=== PATIENT | female | born 1960 | race Caucasian/White ===

== ENCOUNTER 2016-12-05 21:56 | Emergency (ER) | payer BC ==
--- NOTE | ~2016-12-05 | CT4 ---
[facility] A Service of [facility] & [facility] RADIOLOGY TEXT RESULTS PATIENT: HEATH MCCAIN LOCATION: [facility] : 64 UNIT #: [id number] AGE: [address]: Sguey Lang MD SEX: F ORDER DR: [id number] [facility] [address] [place], [place] [address] [id number] E MR#: [id number] Acc #: [id number] NAME: HEATH MCCAIN. : 1960 SEX: F STUDY DATE/TIME: 12/05/2016 23:29 UNIT: [facility] ROOM: STUDY DESCRIPTION: CT Abd and Pelv Wo Cont Attending Physician: Sugey Lang M.D. Ordering Physician: Sugey Lang M.D. Primary Care Physician: Candelario Benavidez M.D. MEDICAL IMAGING REPORT This report is preliminary unless electronic signature is present EXAM CT abdomen and pelvis without IV contrast COMPARISON CT abdomen and pelvis dated 04/17/2008. INDICATION 56-year female with right lower quadrant abdominal pain, nausea, emesis and diarrhea for [address] imaging of the abdomen and pelvis was performed without IV contrast. Lack of IV contrast limits evaluation of adenopathy, vasculature and viscera. Coronal sagittal reformats were constructed. This CT exam was performed with one or more of the following radiation dose reduction techniques: automatic exposure control, adjustment of mA and/or kV according to patient size, and iterative reconstruction. There is a tiny fat-containing umbilical hernia. Small fat-containing right inguinal hernia. No acute fractures or suspicious osseous lesions. Multilevel mild degenerative facet disease of the lumbar spine. No acute fractures or suspicious osseous lesions. Small posterior disc protrusions at L3-4 through L5-S1. No acute findings in the lower chest. Unenhanced liver, gallbladder, spleen, adrenal glands, and kidneys are within normal limits. There is mild haziness of the fat in the superior mesentery with a few prominent mesenteric lymph nodes, the largest of which measures approximately 8 mm short axis. No free fluid or pneumoperitoneum. No hydronephrosis or hydroureter. No renal or ureteral calculus. Urinary bladder is unremarkable. There has been prior hysterectomy. No adnexal masses. No bowel obstruction. Normal appendix. Left colonic diverticulosis without acute diverticulitis. Normal caliber of the abdominal aorta. No adenopathy. STS. [facility] A Service of [facility] & [facility] RADIOLOGY TEXT RESULTS PATIENT: HEATH MCCAIN LOCATION: [facility] : 64 UNIT #: [id number] AGE: [address]: RickeyJanuary P SEX: F ORDER DR: IMPRESSION 1. Haziness of the superior mesenteric fat with multiple associated prominent lymph nodes which are not pathologically enlarged by size criteria. Findings may reflect an acute mesenteric adenitis. 2. Appendix is normal. No other acute findings in the abdomen, pelvis, or imaged lower chest. 3. Small fat-containing right inguinal and umbilical hernias. 4. Multilevel posterior disc protrusions, of the lumbar spine, small. 5. Left colonic diverticulosis without evidence of acute diverticulitis. 6. Prior hysterectomy. Dictated by... Hamilton Salas M.D. THIS IS AN ELECTRONICALLY VERIFIED REPORT Hamilton Salas M.D. at 12/09/2016 8:38 PM AGATHA/gilbert TD: 12/06/2016 09:11 JOB #: [id number] MEDICAL IMAGING REPORT COPY
[2016-12-05 20:18] LABS: URINE SOURCE CLEAN CATCH
[2016-12-05 20:25] LABS: URINE APPEARANCE CLOUDY; URINE BILIRUBIN NEG (NEG); URINE BLOOD 2+ (NEG); URINE COLOR YELLOW; URINE GLUCOSE NEG (NEG); URINE KETONE NEG (NEG); URINE LEUKOCYTE ESTERASE TRACE (NEG); URINE NITRATE NEG (NEG); URINE PROTEIN 2+ (NEG); URINE SPECIFIC GRAVITY 1.026 (1.003-1.035); URINE UROBILINOGEN 0.2 MG/DL (NEG)
[2016-12-05 20:26] LABS: BASOPHIL% 0.5 % (0-2.5); DIFF IND NO; EOSINOPHIL# 0.3 X10e3 (0-0.7); EOSINOPHIL% 3.3 % (0.0-7.0); HEMATOCRIT 44.7 % (35.0-45.0); HEMOGLOBIN 15.1 gm/dL (12.0-16.0); LYMPHOCYTE# 2.6 X10e3 (1.0-3.5); LYMPHOCYTE% 28.4 % (17.0-45.0); MEAN CORPUSCULAR HGB CONC 33.7 g/dL (30-36); MEAN PLATELET VOLUME 9.4 FL (6.5-11.5); MONOCYTE# 0.9 X10e3 (0-1.0); MONOCYTE% 9.3 % (3.0-12.0); NEUTROPHIL# 5.4 X10e3 (1.5-7.1); NEUTROPHIL% 58.5 % (40-75); PLATELET COUNT 211 X10e3 (140-420); RED CELL DISTRIBUTION WIDTH 13.5 % (11.0-15.5); WHITE BLOOD COUNT 9.2 X10e3 (4.0-10.5)
[2016-12-05 20:29] LABS: URINE BACTERIA AUWI 1+ (NEGATIVE); URINE SQUAMOUS EPITHELIAL CELL FEW /[HPF]
[2016-12-05 20:46] LABS: URINE CRYSTALS CALCIUM OXALATE /[HPF]
[2016-12-05 20:55] LABS: ALBUMIN SERUM 4.7 g/dL (3.5-5.0); ALKALINE PHOSPHATASE 123 U/L (32-92); ALT (SGPT) 31 U/L (10-40); AST (SGOT) 20 U/L (10-42); BILIRUBIN, DIRECT 0.1 mg/dL (0.0-0.2); BILIRUBIN,INDIRECT 0.5 mg/dL (0.0-0.9); BILIRUBIN,TOTAL 0.6 mg/dL (0.2-2.0); BLOOD UREA NITROGEN 10 mg/dL (9-23); BUN/CREATININE RATIO 16.66; CALCIUM SERUM 9.8 mg/dL (8.4-10.2); CARBON DIOXIDE 23 mmol/L (22-31); CHLORIDE 103 mmol/L (100-111); CREATININE SERUM 0.6 mg/dL (0.6-1.4); GLOM FILT RATE Estimated ABOVE60 mL/min (>60); GLUCOSE FASTING 145 mg/dL (70-110); LIPASE 16 U/L (22-51); POTASSIUM 3.3 mmol/L (3.5-5.1); PROTEIN TOTAL SERUM 8.3 g/dL (6.0-8.3); SODIUM 136 mmol/L (135-145)
[~2016-12-05 21:56] MED LIST: ACETAMINOPHEN PO; DIFLUCAN PO; FERROUS SULFATE PO; IRON PO; KEFLEX500 MG PO; LEVAQUIN PO; PERCOCET 5-3251 TAB PO; PHENERGAN25 MG PO; SYNTHROID PO
== END 2016-12-06 01:40 | disposition home or self-care (01) ==
LOC: CED 21:56
PROVIDERS: Student in an Organized Health Care Education/Training Program
DX: I88.0 Nonspecific mesenteric lymphadenitis (principal); E11.9 Type 2 diabetes mellitus without complications; I10 Essential (primary) hypertension
CPT/HCPCS: 36415; 74176; 80048; 80076; 81003; 83690; 85025; 96361; 96374; 96375; 99284; J2270; J2405